=== PATIENT | female | born 1965 | race Hispanic/Latino ===

== ENCOUNTER 2021-10-24 23:48 | Emergency (ER) | payer SELFPAY ==
[2021-10-24 23:52] VITALS: BP 144/87
== END 2021-10-25 01:00 | disposition left against medical advice (07) ==
LOC: ED 23:48
DX: R06.02 Shortness of breath (principal); F41.9 Anxiety disorder, unspecified; Z53.21 Procedure and treatment not carried out due to patient leaving prior to being seen by health care provider